=== PATIENT | male | born 1950 | race Caucasian/White ===

== ENCOUNTER 2017-09-01 19:56 | Emergency (ER) | payer OTHER ==
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
[2017-09-01 20:16] VITALS: O2SAT 95
[2017-09-01 20:17] VITALS: TEMP 97.9
[2017-09-01 21:18] VITALS: BP 122/78; PULSE 80; RESP 14
== END 2017-09-01 21:16 | disposition home or self-care (01) ==
LOC: CED 19:56
DX: S42.402A Unspecified fracture of lower end of left humerus, initial encounter for closed fracture (principal); S46.312A Strain of muscle, fascia and tendon of triceps, left arm, initial encounter; S80.212A Abrasion, left knee, initial encounter; Z87.891 Personal history of nicotine dependence; Z79.82 Long term (current) use of aspirin; V18.0XXA Pedal cycle driver injured in noncollision transport accident in nontraffic accident, initial encounter; Y99.8 Other external cause status; Y93.55 Activity, bike riding
CPT/HCPCS: 73080-PO